=== PATIENT | male | born 1975 | race Caucasian/White ===

== ENCOUNTER 2018-08-17 13:13 | Observation (INO) ==
[2018-08-17 14:19] LABS: Bilirubin,Urine Large (Negative); Blood,Urine Negative (Negative); Clarity,Urine Cloudy (Clear); Color,Urine Orange (Yellow); Glucose,Urine (UA) Normal (Normal); Ketones,Urine Negative (Negative); Specific Gravity,Urine 1.017 (1.010-1.025)
[2018-08-17 14:20] LABS: Leukocyte Esterase,Urine Small (Negative); Nitrite,Urine Negative (Negative); Protein,Urine Negative (Neg-Trace); Urobilinogen,Urine Normal (Normal)
[2018-08-17 14:20] LABS: Basophils % 0.6 %; Eosinophils # 0.1 K/mcL (0.0-0.6); Eosinophils % 1.3 %; Hematocrit 47.7 % (37.5-50.1); Hemoglobin 15.4 g/dL (12.9-16.9); Immature Granulocytes % 1.3 % (0-4); Lymphocytes # 2.9 K/mcL (0.6-4.6); Lymphocytes % 41.1 %; Mean Corpuscular HGB Conc 32.3 g/dL (31.6-35.5); Mean Corpuscular Hemoglobin 27.9 pg (28.0-33.3); Mean Corpuscular Volume 86.6 fL (83.0-100.0); Mean Platelet Volume 11.1 fL (9.4-12.4); Monocytes # 0.7 K/mcL (0.0-1.3); Monocytes % 9.7 %; Platelet Count 204 K/mcL (140-400); Red Blood Count 5.51 M/mcL (4.19-5.50)
[2018-08-17 14:24] LABS: Neutrophils # 3.2 K/mcL (1.6-8.9)
[2018-08-17 14:28] LABS: Bacteria,Urine Few per hpf (None-Few); RBC,Urine 0-3 per hpf (0-3); WBC,Urine 0-3 per hpf (0-3)
[2018-08-17 14:30] LABS: Prothrombin Time 11.4 Seconds (9.4-12.1)
[2018-08-17 14:33] LABS: Activated Partial Thrombo Time 43.3 Seconds (26.0-36.0)
--- NOTE | 2018-08-17 14:38 | Emergency Department Note ---
Disposition Clinical Impression: Hepatitis Hepatitis A Qualifiers: Hepatic coma status: without hepatic coma Qualified Code(s): B15.9 - Hepatitis A without hepatic coma Hepatitis C Qualifiers: Viral hepatitis chronicity: chronic Hepatic coma status: without hepatic coma Qualified Code(s): B18.2 - Chronic viral hepatitis C Disposition: Admitted As Inpatient Condition: Good Time of Disposition: 18:02 General Adult HPI - General Chief complaint: ED Abdominal Pain Stated complaint: abd pain/Jaundice Time Seen by Provider: 08/17/18 13:27 Source: patient Limitations: no limitations Nursing Notes Reviewed: Yes Vital Signs Reviewed: Yes - History of Present Illness HPI Narrative: This is a 42-year-old male with past medical history significant for hepatitis C who presents after he was diagnosed with hepatitis A 2 days ago at [facility]. Patient states that symptoms initially began 10 days ago, and have progressively worsened since then. Notes that he has been feeling abdominal pain is epigastric region, described as achy and constant. Also notes sharp pain in the same region that is worsened with coughing. Pain is worse at night. He also notes that he has had decreased appetite and is now only eating one time per day. He has vomited 1-2 times every day, nonbloody, nonbilious. He also describes naa-colored stools, dark urine, yellowing of his eyes and skin, rash in his lower extremities and itchiness, extreme fatigue, lethargy, malaise. Abdominal pain is worsened with any type of movement, and it alleviated with immobilization and rest. The pain does not radiate. He says is rated approximately 6-7/10. He denies any fevers, headaches, ear pain, congestion, chest pain, palpitations, wheezing, difficulty breathing, diarrhea, burning with urination. Patient was previously incarcerated. History of IV drug abuse approximately one year ago. States he has not used since then. Denies any alcohol use. Smokes half pack per day. Pt Subjective Complaint: Abdominal pain Onset (ago): week(s) (10 days) Location: abdomen Radiation: non-radiation Pain Severity: moderate Pain Scale: 8 Quality: aching, constant Consistency: constant Improves with: immobilization, rest Worsens with: movement Associated symptoms: Reports: diaphoresis, fever/chills, loss of appetite, malaise, nausea/vomiting, rash, weakness. Denies: confusion, chest pain, cough, headaches, shortness of breath Treatments Prior to Arrival: none - Related Data Home Medications Medication Instructions Recorded Confirmed No Known Home Drugs 08/17/18 08/17/18 Allergies Allergy/AdvReac Type Severity Reaction Status Date / Time No Known Allergies Allergy Verified 08/17/18 13:16 All systems ED: reviewed and negative except as stated. Constitutional: Reports: chills, weakness, night sweats. Denies: fever Eyes: Denies: vision change ENT ED: Denies: hearing loss Cardiovascular: Denies: chest pain, palpitations Respiratory: Denies: cough, dyspnea, wheezes Gastrointestinal: Reports: abdominal pain, vomiting. Denies: nausea, diarrhea, hematemesis, melena, hematochezia Genitourinary: Denies: dysuria Musculoskeletal: Denies: back pain, neck pain Integumentary: Reports: rash Neurological: Reports: weakness. Denies: headache, numbness Psychiatric: Denies: anxiety Endocrine: Reports: fatigue Past Medical History - Past Medical History Attestation: Yes The following information was validated with the patient. Source: patient, old records reviewed Medical history: Reports: hepatitis Psychiatric history: Reports: no psych history - Social History Smoking Status: Current every day smoker Alcohol use: Reports: none Drug use: Reports: none Physical Exam - General Limitations: no limitations General appearance: alert, in no apparent distress - Head Head exam: atraumatic, normocephalic, normal inspection - Eye Eye exam: Present: PERRL, EOMI, scleral icterus - ENT ENT exam: normal exam, normal oropharynx, mucous membranes moist - Neck Neck exam: Present: normal inspection - Chest Chest inspection: Present: normal inspection, symmetric chest wall rise - Respiratory Respiratory exam: Present: normal lung sounds bilaterally - Cardiovascular Cardiovascular exam: Present: regular rate, normal rhythm, normal heart sounds, +S1, +S2 - Abdominal Exam Abdominal exam: Present: soft, tenderness (Tenderness to palpation in right upper quadrant; negative Atkinson sign), normal bowel sounds. Absent: distention, guarding, rebound, rigidity, Atkinson's sign, Rovsing's sign, tenderness at McBurney's Point Abdominal tenderness: Present: RUQ - Extremities Exam Extremities exam: Present: normal inspection, full ROM, normal capillary refill - Back Exam Back exam: Present: normal inspection, full ROM. Absent: CVA tenderness (R), CVA tenderness (L) - Neurological Exam Neurological exam: Present: alert, oriented X3, CN II-XII intact - Psychiatric Psychiatric exam: Present: normal affect, normal mood - Skin Skin exam: Present: warm, dry, intact, other (Jaundice) Course - Reevaluation(s) Reevaluation #1: Patient seen and examined at bedside. We will order routine lab work. We will also order fluids due to dehydration. We will order Zofran for abdominal discomfort. Time: 14:48 Reevaluation #2: Given patient has history of hepatitis C and is currently diagnosed with hepatitis A, patient has been vomiting daily and then unable to keep down food and drink, I spoke with Dr. Dudley of hospitalist service, and we will admit patient for GI follow-up tomorrow. Patient is currently admitted to hospitalist service. Time: 17:40 Vital Signs Temperature 97.5 F L 08/17/18 13:13 Pulse Rate 84 08/17/18 13:13 Respiratory Rate 14 08/17/18 13:13 Blood Pressure 111/71 08/17/18 13:13 O2 Sat by Pulse Oximetry 98 08/17/18 13:13 Temperature 98.2 F 08/17/18 17:50 Pulse Rate 81 08/17/18 17:50 Respiratory Rate 16 08/17/18 17:50 Blood Pressure 106/69 08/17/18 17:50 O2 Sat by Pulse Oximetry 99 08/17/18 17:50 Oxygen Delivery Oxygen Delivery Room Air Medical Decision Making - [facility] Narrative Medical decision making narrative: 42-year-old male with past medical history significant for hepatitis C, history of IV drug abuse resents with recent diagnosis of hepatitis A approximately 2 days ago. Patient states that he was diagnosed at [facility]. He has had nausea and vomiting, fatigue, naa-colored stools, dark urine over the past 10- 14 days. On exam patient has dry mucous membranes, scleral icterus, jaundice, mild abdominal pain. Lab exams reveal elevated total bilirubin = 12.7, elevated liver enzymes ALT greater than AST, positive hepatitis C and hepatitis A serology. Patient has hepatitis A, and discussed with patient because of hepatitis A usually just involve supportive care. However patient [facility] and here due to symptoms. He is unable to tolerate by mouth intake. We will have patient admitted to hospitalist service, to set him up with GI and have a follow-up with outpatient PCP here. Spoke with Dr. Dudley who agreed to accept patient to hospitalist service. Would benefit from GI follow-up for management of hepatitis A, and further management of hepatitis C. - Differential Diagnosis Hepatitis A, Hepatitis C - Lab Data Lab results reviewed: Yes I reviewed the patient's lab results. Result diagrams: 08/17/18 14:07 08/17/18 14:07 Lab Results 08/17/18 08/17/18 08/17/18 Range/Units 13:53 14:07 14:07 WBC 7.0 (4.3-11.1) K/mcL RBC 5.51 H (4.19-5.50) M/mcL Hgb 15.4 (12.9-16.9) g/dL Hct 47.7 (37.5-50.1) % MCV 86.6 (83.0-100.0) fL MCH 27.9 L (28.0-33.3) pg MCHC 32.3 (31.6-35.5) g/dL RDW 18.0 H (11.5-14.5) % Plt Count 204 (140-400) K/mcL MPV 11.1 (9.4-12.4) fL Immature Gran % 1.3 (0-4) % Seg Neutrophils % 46.0 % Lymphocytes % 41.1 % Monocytes % 9.7 % Eosinophils % 1.3 % Basophils % 0.6 % Neutrophils # 3.2 (1.6-8.9) K/mcL Lymphocytes # 2.9 (0.6-4.6) K/mcL Monocytes # 0.7 (0.0-1.3) K/mcL Eosinophils # 0.1 (0.0-0.6) K/mcL Basophils # 0.0 (0.0-0.2) K/mcL Platelet Estimate Normal (Normal) PT 11.4 (9.4-12.1) Seconds INR 1.0 APTT 43.3 H (26.0-36.0) Seconds Sodium (136-145) mEq/L Potassium (3.5-5.1) mEq/L Chloride (98-107) mEq/L Carbon Dioxide (23-29) mEq/L BUN (6-20) mg/dL Creatinine (0.70-1.30) mg/dL Est GFR ( Amer) (> 60) Est GFR (Non-Af Amer) (> 60) BUN/Creatinine Ratio (6-26) Glucose (70-105) mg/dL Calculated Osmolality (280-300) Lactic Acid (0.5-2.2) mmol/L Calcium (8.6-10.3) mg/dL Total Bilirubin (0.3-1.0) mg/dL Direct Bilirubin (0.0-0.2) mg/dL Indirect Bilirubin (0.0-1.2) mg/dL AST (13-39) Units/L ALT (7-52) Units/L Alkaline Phosphatase (34-104) Units/L Ammonia (16-53) mcmol/L Troponin I (< 0.04) ng/mL Serum Total Protein (6.4-8.9) g/dL Albumin (3.5-5.7) g/dL Globulin (2.4-3.5) g/dL Albumin/Globulin Ratio (1.1-2.2) Lipase (11-82) Units/L Urine Color [place] A (Yellow) Urine Clarity Cloudy A (Clear) Urine pH 6.0 (5.0-8.0) pH Units Ur Specific [place] 1.017 (1.010-1.025) Urine Protein Negative (Neg-Trace) mg/dL Urine Glucose (UA) Normal (Normal) mg/dL Urine Ketones Negative (Negative) mg/dL Urine Blood Negative (Negative) Urine Nitrite Negative (Negative) Urine Bilirubin Large H (Negative) Urine Urobilinogen Normal (Normal) mg/dL Ur Leukocyte Esterase Small H (Negative) Urine Microscopic RBC 0-3 (0-3) per hpf Urine Microscopic WBC 0-3 (0-3) per hpf Urine Bacteria Few (None-Few) per hpf Ur Culture Indicated? YES A (NO) Hepatitis A IgM Ab (Nonreactive) Hep Bs Antigen (Nonreactive) Hep B Core IgM Ab (Nonreactive) Hepatitis C Ab Screen (Nonreactive) Specimen Rejected 08/17/18 08/17/18 08/17/18 Range/Units 14:07 14:07 14:07 WBC (4.3-11.1) K/mcL RBC (4.19-5.50) M/mcL Hgb (12.9-16.9) g/dL Hct (37.5-50.1) % MCV (83.0-100.0) fL MCH (28.0-33.3) pg MCHC (31.6-35.5) g/dL RDW (11.5-14.5) % Plt Count (140-400) K/mcL MPV (9.4-12.4) fL Immature Gran % (0-4) % Seg Neutrophils % % Lymphocytes % % Monocytes % % Eosinophils % % Basophils % % Neutrophils # (1.6-8.9) K/mcL Lymphocytes # (0.6-4.6) K/mcL Monocytes # (0.0-1.3) K/mcL Eosinophils # (0.0-0.6) K/mcL Basophils # (0.0-0.2) K/mcL Platelet Estimate (Normal) PT (9.4-12.1) Seconds INR APTT (26.0-36.0) Seconds Sodium 133 L (136-145) mEq/L Potassium 4.3 (3.5-5.1) mEq/L Chloride 99 (98-107) mEq/L Carbon Dioxide 29 (23-29) mEq/L BUN 7 (6-20) mg/dL Creatinine 0.74 (0.70-1.30) mg/dL Est GFR ( Amer) > 60 (> 60) Est GFR (Non-Af Amer) > 60 (> 60) BUN/Creatinine Ratio 9 (6-26) Glucose 76 (70-105) mg/dL Calculated Osmolality 273 L (280-300) Lactic Acid (0.5-2.2) mmol/L Calcium 9.1 (8.6-10.3) mg/dL Total Bilirubin 12.3 H (0.3-1.0) mg/dL Direct Bilirubin 7.8 H (0.0-0.2) mg/dL Indirect Bilirubin 4.5 H (0.0-1.2) mg/dL AST 271 H (13-39) Units/L ALT 673 H (7-52) Units/L Alkaline Phosphatase 301 H (34-104) Units/L Ammonia 57 H (16-53) mcmol/L Troponin I < 0.03 (< 0.04) ng/mL Serum Total Protein 8.2 (6.4-8.9) g/dL Albumin 3.6 (3.5-5.7) g/dL Globulin 4.6 H (2.4-3.5) g/dL Albumin/Globulin Ratio 0.8 L (1.1-2.2) Lipase 53 (11-82) Units/L Urine Color (Yellow) Urine Clarity (Clear) Urine pH (5.0-8.0) pH Units Ur Specific [place] (1.010-1.025) Urine Protein (Neg-Trace) mg/dL Urine Glucose (UA) (Normal) mg/dL Urine Ketones (Negative) mg/dL Urine Blood (Negative) Urine Nitrite (Negative) Urine Bilirubin (Negative) Urine Urobilinogen (Normal) mg/dL Ur Leukocyte Esterase (Negative) Urine Microscopic RBC (0-3) per hpf Urine Microscopic WBC (0-3) per hpf Urine Bacteria (None-Few) per hpf Ur Culture Indicated? (NO) Hepatitis A IgM Ab Reactive H (Nonreactive) Hep Bs Antigen Nonreactive (Nonreactive) Hep B Core IgM Ab Equivocal H (Nonreactive) Hepatitis C Ab Screen Reactive H (Nonreactive) Specimen Rejected 08/17/18 08/17/18 Range/Units 14:07 15:59 WBC (4.3-11.1) K/mcL RBC (4.19-5.50) M/mcL Hgb (12.9-16.9) g/dL Hct (37.5-50.1) % MCV (83.0-100.0) fL MCH (28.0-33.3) pg MCHC (31.6-35.5) g/dL RDW (11.5-14.5) % Plt Count (140-400) K/mcL MPV (9.4-12.4) fL Immature Gran % (0-4) % Seg Neutrophils % % Lymphocytes % % Monocytes % % Eosinophils % % Basophils % % Neutrophils # (1.6-8.9) K/mcL Lymphocytes # (0.6-4.6) K/mcL Monocytes # (0.0-1.3) K/mcL Eosinophils # (0.0-0.6) K/mcL Basophils # (0.0-0.2) K/mcL Platelet Estimate (Normal) PT (9.4-12.1) Seconds INR APTT (26.0-36.0) Seconds Sodium (136-145) mEq/L Potassium (3.5-5.1) mEq/L Chloride (98-107) mEq/L Carbon Dioxide (23-29) mEq/L BUN (6-20) mg/dL Creatinine (0.70-1.30) mg/dL Est GFR ( Amer) (> 60) Est GFR (Non-Af Amer) (> 60) BUN/Creatinine Ratio (6-26) Glucose (70-105) mg/dL Calculated Osmolality (280-300) Lactic Acid 0.8 (0.5-2.2) mmol/L Calcium (8.6-10.3) mg/dL Total Bilirubin (0.3-1.0) mg/dL Direct Bilirubin (0.0-0.2) mg/dL Indirect Bilirubin (0.0-1.2) mg/dL AST (13-39) Units/L ALT (7-52) Units/L Alkaline Phosphatase (34-104) Units/L Ammonia (16-53) mcmol/L Troponin I (< 0.04) ng/mL Serum Total Protein (6.4-8.9) g/dL Albumin (3.5-5.7) g/dL Globulin (2.4-3.5) g/dL Albumin/Globulin Ratio (1.1-2.2) Lipase (11-82) Units/L Urine Color (Yellow) Urine Clarity (Clear) Urine pH (5.0-8.0) pH Units Ur Specific [place] (1.010-1.025) Urine Protein (Neg-Trace) mg/dL Urine Glucose (UA) (Normal) mg/dL Urine Ketones (Negative) mg/dL Urine Blood (Negative) Urine Nitrite (Negative) Urine Bilirubin (Negative) Urine Urobilinogen (Normal) mg/dL Ur Leukocyte Esterase (Negative) Urine Microscopic RBC (0-3) per hpf Urine Microscopic WBC (0-3) per hpf Urine Bacteria (None-Few) per hpf Ur Culture Indicated? (NO) Hepatitis A IgM Ab (Nonreactive) Hep Bs Antigen (Nonreactive) Hep B Core IgM Ab (Nonreactive) Hepatitis C Ab Screen (Nonreactive) Specimen Rejected Hemolyzed
[2018-08-17] MEDS ORDERED: Ondansetron 4 MG/2 ML VIAL IVP ONE (14:40)
[2018-08-17] MEDS ORDERED: Ringers Solution, Lactated 1,000 ML IVC ONE (14:40)
[2018-08-17 14:55] LABS: Platelet Estimate Normal (Normal)
[2018-08-17 15:03] LABS: Hepatitis B Surface Antigen Nonreactive (Nonreactive)
[2018-08-17 15:08] LABS: Troponin I < 0.03 ng/mL (< 0.04)
[2018-08-17 15:23] LABS: Alanine Aminotransferase 673 Units/L (7-52); Albumin 3.6 g/dL (3.5-5.7); Albumin/Globulin Ratio 0.8 (1.1-2.2); Alkaline Phosphatase 301 Units/L (34-104); Aspartate Amino Transferase 271 Units/L (13-39); BUN/Creatinine Ratio 9 (6-26); Bilirubin,Direct 7.8 mg/dL (0.0-0.2); Bilirubin,Indirect 4.5 mg/dL (0.0-1.2); Bilirubin,Total 12.3 mg/dL (0.3-1.0); Blood Urea Nitrogen 7 mg/dL (6-20); Calcium 9.1 mg/dL (8.6-10.3); Carbon Dioxide 29 mEq/L (23-29); Chloride 99 mEq/L (98-107); Globulin 4.6 g/dL (2.4-3.5); Glucose 76 mg/dL (70-105); Lipase 53 Units/L (11-82); Osmolality,Calculated 273 (280-300); Potassium 4.3 mEq/L (3.5-5.1); Sodium 133 mEq/L (136-145); Total Protein 8.2 g/dL (6.4-8.9); eGFR For Non-African Americans > 60 (> 60)
[2018-08-17] MEDS ORDERED: Ketorolac 30 MG/ML VIAL IVP ONE (15:30)
[2018-08-17 15:34] LABS: Hepatitis A Antibody IgM Reactive (Nonreactive)
[2018-08-17] MEDS ORDERED: Lactulose Oral Soln 20 GM/30 ML UDC PO STA (16:25)
[2018-08-17 16:42] LABS: Hepatitis C Virus Antibody Reactive (Nonreactive)
[2018-08-17 16:45] LABS: Hepatitis B Core IgM Equivocal (Nonreactive)
--- NOTE | 2018-08-17 16:46 | Emergency Department Note ---
Disposition Clinical Impression: Hepatitis Disposition: Admitted As Inpatient Condition: Good Referrals: NONE,PCP [Primary Care Provider] - Forms: ED Satisfaction Letter, Work/School Release General Adult HPI - General Chief complaint: ED Abdominal Pain Stated complaint: abd pain/Jaundice Time Seen by Provider: 08/17/18 13:27 Source: patient Limitations: no limitations - History of Present Illness Location: abdomen Pain Scale: 8 Quality: aching, constant Improves with: immobilization, rest Worsens with: movement Associated symptoms: Reports: diaphoresis, fever/chills, loss of appetite, malaise, nausea/vomiting, rash, weakness. Denies: confusion, chest pain, cough, headaches, shortness of breath Treatments Prior to Arrival: none - Related Data Allergies Allergy/AdvReac Type Severity Reaction Status Date / Time No Known Allergies Allergy Verified 08/17/18 13:16 Constitutional: Reports: chills, weakness, night sweats. Denies: fever Eyes: Denies: vision change ENT ED: Denies: hearing loss Cardiovascular: Denies: chest pain, palpitations Respiratory: Denies: cough, dyspnea, wheezes Gastrointestinal: Reports: abdominal pain, vomiting. Denies: nausea, diarrhea, hematemesis, melena, hematochezia Genitourinary: Denies: dysuria Musculoskeletal: Denies: back pain, neck pain Integumentary: Reports: rash Neurological: Reports: weakness. Denies: headache, numbness Psychiatric: Denies: anxiety Endocrine: Reports: fatigue Past Medical History - Past Medical History Medical history: Reports: hepatitis Psychiatric history: Reports: no psych history - Social History Smoking Status: Current every day smoker Alcohol use: Reports: none Drug use: Reports: none Physical Exam - General Limitations: no limitations General appearance: alert, in no apparent distress Course Vital Signs Temperature 97.5 F L 08/17/18 13:13 Pulse Rate 84 08/17/18 13:13 Respiratory Rate 14 08/17/18 13:13 Blood Pressure 111/71 08/17/18 13:13 O2 Sat by Pulse Oximetry 98 08/17/18 13:13 Temperature 98.3 F 08/17/18 14:11 Pulse Rate 87 08/17/18 15:24 Respiratory Rate 14 08/17/18 15:24 Blood Pressure 111/73 08/17/18 15:24 O2 Sat by Pulse Oximetry 99 08/17/18 15:24 Oxygen Delivery Oxygen Delivery Room Air Medical Decision Making - Lab Data Result diagrams: 08/17/18 14:07 08/17/18 14:07 Lab Results 08/17/18 08/17/18 08/17/18 Range/Units 13:53 14:07 14:07 WBC 7.0 (4.3-11.1) K/mcL RBC 5.51 H (4.19-5.50) M/mcL Hgb 15.4 (12.9-16.9) g/dL Hct 47.7 (37.5-50.1) % MCV 86.6 (83.0-100.0) fL MCH 27.9 L (28.0-33.3) pg MCHC 32.3 (31.6-35.5) g/dL RDW 18.0 H (11.5-14.5) % Plt Count 204 (140-400) K/mcL MPV 11.1 (9.4-12.4) fL Immature Gran % 1.3 (0-4) % Seg Neutrophils % 46.0 % Lymphocytes % 41.1 % Monocytes % 9.7 % Eosinophils % 1.3 % Basophils % 0.6 % Neutrophils # 3.2 (1.6-8.9) K/mcL Lymphocytes # 2.9 (0.6-4.6) K/mcL Monocytes # 0.7 (0.0-1.3) K/mcL Eosinophils # 0.1 (0.0-0.6) K/mcL Basophils # 0.0 (0.0-0.2) K/mcL Platelet Estimate Normal (Normal) PT 11.4 (9.4-12.1) Seconds INR 1.0 APTT 43.3 H (26.0-36.0) Seconds Sodium (136-145) mEq/L Potassium (3.5-5.1) mEq/L Chloride (98-107) mEq/L Carbon Dioxide (23-29) mEq/L BUN (6-20) mg/dL Creatinine (0.70-1.30) mg/dL Est GFR ( Amer) (> 60) Est GFR (Non-Af Amer) (> 60) BUN/Creatinine Ratio (6-26) Glucose (70-105) mg/dL Calculated Osmolality (280-300) Lactic Acid (0.5-2.2) mmol/L Calcium (8.6-10.3) mg/dL Total Bilirubin (0.3-1.0) mg/dL Direct Bilirubin (0.0-0.2) mg/dL Indirect Bilirubin (0.0-1.2) mg/dL AST (13-39) Units/L ALT (7-52) Units/L Alkaline Phosphatase (34-104) Units/L Ammonia (16-53) mcmol/L Troponin I (< 0.04) ng/mL Serum Total Protein (6.4-8.9) g/dL Albumin (3.5-5.7) g/dL Globulin (2.4-3.5) g/dL Albumin/Globulin Ratio (1.1-2.2) Lipase (11-82) Units/L Urine Color [place] A (Yellow) Urine Clarity Cloudy A (Clear) Urine pH 6.0 (5.0-8.0) pH Units Ur Specific [place] 1.017 (1.010-1.025) Urine Protein Negative (Neg-Trace) mg/dL Urine Glucose (UA) Normal (Normal) mg/dL Urine Ketones Negative (Negative) mg/dL Urine Blood Negative (Negative) Urine Nitrite Negative (Negative) Urine Bilirubin Large H (Negative) Urine Urobilinogen Normal (Normal) mg/dL Ur Leukocyte Esterase Small H (Negative) Urine Microscopic RBC 0-3 (0-3) per hpf Urine Microscopic WBC 0-3 (0-3) per hpf Urine Bacteria Few (None-Few) per hpf Ur Culture Indicated? YES A (NO) Hepatitis A IgM Ab (Nonreactive) Hep Bs Antigen (Nonreactive) Hepatitis C Ab Screen (Nonreactive) Specimen Rejected 08/17/18 08/17/18 08/17/18 Range/Units 14:07 14:07 14:07 WBC (4.3-11.1) K/mcL RBC (4.19-5.50) M/mcL Hgb (12.9-16.9) g/dL Hct (37.5-50.1) % MCV (83.0-100.0) fL MCH (28.0-33.3) pg MCHC (31.6-35.5) g/dL RDW (11.5-14.5) % Plt Count (140-400) K/mcL MPV (9.4-12.4) fL Immature Gran % (0-4) % Seg Neutrophils % % Lymphocytes % % Monocytes % % Eosinophils % % Basophils % % Neutrophils # (1.6-8.9) K/mcL Lymphocytes # (0.6-4.6) K/mcL Monocytes # (0.0-1.3) K/mcL Eosinophils # (0.0-0.6) K/mcL Basophils # (0.0-0.2) K/mcL Platelet Estimate (Normal) PT (9.4-12.1) Seconds INR APTT (26.0-36.0) Seconds Sodium 133 L (136-145) mEq/L Potassium 4.3 (3.5-5.1) mEq/L Chloride 99 (98-107) mEq/L Carbon Dioxide 29 (23-29) mEq/L BUN 7 (6-20) mg/dL Creatinine 0.74 (0.70-1.30) mg/dL Est GFR ( Amer) > 60 (> 60) Est GFR (Non-Af Amer) > 60 (> 60) BUN/Creatinine Ratio 9 (6-26) Glucose 76 (70-105) mg/dL Calculated Osmolality 273 L (280-300) Lactic Acid (0.5-2.2) mmol/L Calcium 9.1 (8.6-10.3) mg/dL Total Bilirubin 12.3 H (0.3-1.0) mg/dL Direct Bilirubin 7.8 H (0.0-0.2) mg/dL Indirect Bilirubin 4.5 H (0.0-1.2) mg/dL AST 271 H (13-39) Units/L ALT 673 H (7-52) Units/L Alkaline Phosphatase 301 H (34-104) Units/L Ammonia 57 H (16-53) mcmol/L Troponin I < 0.03 (< 0.04) ng/mL Serum Total Protein 8.2 (6.4-8.9) g/dL Albumin 3.6 (3.5-5.7) g/dL Globulin 4.6 H (2.4-3.5) g/dL Albumin/Globulin Ratio 0.8 L (1.1-2.2) Lipase 53 (11-82) Units/L Urine Color (Yellow) Urine Clarity (Clear) Urine pH (5.0-8.0) pH Units Ur Specific [place] (1.010-1.025) Urine Protein (Neg-Trace) mg/dL Urine Glucose (UA) (Normal) mg/dL Urine Ketones (Negative) mg/dL Urine Blood (Negative) Urine Nitrite (Negative) Urine Bilirubin (Negative) Urine Urobilinogen (Normal) mg/dL Ur Leukocyte Esterase (Negative) Urine Microscopic RBC (0-3) per hpf Urine Microscopic WBC (0-3) per hpf Urine Bacteria (None-Few) per hpf Ur Culture Indicated? (NO) Hepatitis A IgM Ab Reactive H (Nonreactive) Hep Bs Antigen Nonreactive (Nonreactive) Hepatitis C Ab Screen Reactive H (Nonreactive) Specimen Rejected 08/17/18 08/17/18 Range/Units 14:07 15:59 WBC (4.3-11.1) K/mcL RBC (4.19-5.50) M/mcL Hgb (12.9-16.9) g/dL Hct (37.5-50.1) % MCV (83.0-100.0) fL MCH (28.0-33.3) pg MCHC (31.6-35.5) g/dL RDW (11.5-14.5) % Plt Count (140-400) K/mcL MPV (9.4-12.4) fL Immature Gran % (0-4) % Seg Neutrophils % % Lymphocytes % % Monocytes % % Eosinophils % % Basophils % % Neutrophils # (1.6-8.9) K/mcL Lymphocytes # (0.6-4.6) K/mcL Monocytes # (0.0-1.3) K/mcL Eosinophils # (0.0-0.6) K/mcL Basophils # (0.0-0.2) K/mcL Platelet Estimate (Normal) PT (9.4-12.1) Seconds INR APTT (26.0-36.0) Seconds Sodium (136-145) mEq/L Potassium (3.5-5.1) mEq/L Chloride (98-107) mEq/L Carbon Dioxide (23-29) mEq/L BUN (6-20) mg/dL Creatinine (0.70-1.30) mg/dL Est GFR ( Amer) (> 60) Est GFR (Non-Af Amer) (> 60) BUN/Creatinine Ratio (6-26) Glucose (70-105) mg/dL Calculated Osmolality (280-300) Lactic Acid 0.8 (0.5-2.2) mmol/L Calcium (8.6-10.3) mg/dL Total Bilirubin (0.3-1.0) mg/dL Direct Bilirubin (0.0-0.2) mg/dL Indirect Bilirubin (0.0-1.2) mg/dL AST (13-39) Units/L ALT (7-52) Units/L Alkaline Phosphatase (34-104) Units/L Ammonia (16-53) mcmol/L Troponin I (< 0.04) ng/mL Serum Total Protein (6.4-8.9) g/dL Albumin (3.5-5.7) g/dL Globulin (2.4-3.5) g/dL Albumin/Globulin Ratio (1.1-2.2) Lipase (11-82) Units/L Urine Color (Yellow) Urine Clarity (Clear) Urine pH (5.0-8.0) pH Units Ur Specific [place] (1.010-1.025) Urine Protein (Neg-Trace) mg/dL Urine Glucose (UA) (Normal) mg/dL Urine Ketones (Negative) mg/dL Urine Blood (Negative) Urine Nitrite (Negative) Urine Bilirubin (Negative) Urine Urobilinogen (Normal) mg/dL Ur Leukocyte Esterase (Negative) Urine Microscopic RBC (0-3) per hpf Urine Microscopic WBC (0-3) per hpf Urine Bacteria (None-Few) per hpf Ur Culture Indicated? (NO) Hepatitis A IgM Ab (Nonreactive) Hep Bs Antigen (Nonreactive) Hepatitis C Ab Screen (Nonreactive) Specimen Rejected Hemolyzed Attestation Statement - Attestation Attestation: I examined this patient and my medical decision-making was reviewed with the Resident Physician. I agree with the documented findings, disposition and treatment plan as described except to the extent set forth below. 42 year old male presents tothe ed wit complaitnts of wosening hepatitis and has a A on chornic C and appears juadinced at bedside. PAtient tbili has been el eated now aiwth AST/ALt elevation and it appears that he is dehydrated with an eleated ammonia level. Will treat with lactulose and and admit to medicine.
[2018-08-17] MEDS ORDERED: Ondansetron ODT 4 MG TAB.RAPDIS SL PRN (17:15)
[2018-08-17] MEDS ORDERED: Naloxone 0.4 MG/ML INJ IVP PRN (17:15)
--- NOTE | 2018-08-17 17:33 | Internal Med History&Physical ---
<MarrAnanyaCailxto C - Last Filed: 08/17/18 17:27> Date of Encounter: 08/17/18 Time of Encounter: 17:28 Internal Medicine - H&P: HPI Chief complaint: nausea/vomiting Admitted From: Emergency Dept Plans for Post Hospital Care: Home History of present illness: Mr. Gómez is a 42 year old male with a past medical history of chronic hepatitis C of unknown contraction source. He was seen at [facility] last week for acute hepatitis A, and was discharged 2 days ago. He has had continued nausea, vomiting, abdominal pain, anorexia, worsening jaundice, dark urine, itching, fatigue, malaise. He denies other significant review of systems. He does not have other significant past medical or surgical history, takes no home medications. Denies significant past family history including liver or gastrointestinal cancers. Social history is significant for [id number] smoking history, previous IV drug abuse more than one year ago, opioid and marijuana use approximately 6 months ago. In the emergency department vitals are within normal limits. CBC noncontributory. CMP significant for hyponatremia, hyperbilirubinemia, elevated transaminases, elevated ammonia. Urinalysis also mildly positive for leukocyte esterase and largely positive for bilirubin. Hepatitis A IgM antibody was reactive, hepatitis B core IgM antibody was equivocal, hepatitis C antibody screen was reactive. Patient was admitted for supportive care, nausea and pain control, gastroenterology evaluation and management. Past Med Surg Social Fam HX - Past Medical History Medical history: hepatitis Additional medical history: Hep C Psychiatric history: no psych history - Social History Smoking Status: Current every day smoker Alcohol use: none Drug use: none - Family History Mother Hx Family Cancer: No Hx Family GI Disorders: No Father Hx Family Cancer: No Hx Family GI Disorders: No Internal Medicine - H&P: Meds No Known Home Drugs 08/17/18 [History] Allergy/AdvReac Type Severity Reaction Status Date / Time No Known Allergies Allergy Verified 08/17/18 13:16 All Systems PM: A 10-system review of systems was performed and is negative for pertinent findings except as documented above in the HPI. - Constitutional Constitutional: anorexia, fatigue, lethargy, malaise, no chills - EENT Eyes: no blurry vision, no change in vision Additional comments: Scleral icterus Nose, mouth and throat: no bleeding gums, no epistaxis - Cardiovascular Cardiovascular ROS IM: no chest pain, no dyspnea, no dyspnea on exertion, no edema, no irregular heart rhythm, no syncope - Respiratory Respiratory: no dyspnea, no hemoptysis - Gastrointestinal Gastrointestinal: abdominal pain, change in stool character, nausea, vomiting, no change in bowel habits, no coffee ground emesis, no constipation, no diarrhea, no dysphagia, no fecal incontinence, no hematochezia, no melena - Genitourinary Genitourinary ROS male: other (Dark urine), no difficulty urinating, no dysuria, no flank pain, no hematuria, no urinary frequency, no urinary hesitancy, no urinary incontinence, no urinary urgency - Musculoskeletal Musculoskeletal ROS IM: myalgias, no arthralgias - Integumentary Integumentary IM: pruritus, jaundice - Neurological Neurological ROS: no abnormal gait, no abnormal hearing, no behavioral changes, no focal weakness, no numbness, no paresthesias - Psychiatric Psychiatric: no behavioral changes, no confusion - Hematologic/Lymphatic Hematologic/Lymphatic: no easy bleeding, no easy bruising - Constitutional Vitals: Temp Pulse Resp BP Pulse Ox 98.3 F 86 16 95/75 98 08/17/18 14:11 08/17/18 17:18 08/17/18 17:18 08/17/18 17:18 08/17/18 17:18 Exam: Appears stated age, no acute distress Alert and oriented 3, normal affect Cranial nerves II through XII intact Extraocular movements intact, pupils equal and reactive to light, significant scleral icterus present No JVD, no edema, peripheral pulses 2+ Heart in regular rate and rhythm without murmur or gallop auscultated Lungs clear to auscultation bilaterally without specific adventitia auscultated Abdomen soft, no surgical scars present, tender to palpation in right upper quadrant, mild hepatomegaly, no splenomegaly, no ascites or fluid wave present, no caput medusa, no hernias noted Patient moves all 4 extremities, sensation and motor intact Skin warm and dry, no rash, significant jaundice, scratch perera from scratching present Internal Med - H&P Results - Labs CBC & Chem 7: 08/17/18 14:07 08/17/18 14:07 Labs: Short CBC 08/17/18 Range/Units 14:07 WBC 7.0 (4.3-11.1) K/mcL Hgb 15.4 (12.9-16.9) g/dL Hct 47.7 (37.5-50.1) % Plt Count 204 (140-400) K/mcL Neutrophils # 3.2 (1.6-8.9) K/mcL BMP 08/17/18 14:07 Sodium 133 L Potassium 4.3 Chloride 99 Carbon Dioxide 29 BUN 7 Creatinine 0.74 Glucose 76 Calcium 9.1 Cardiac Enzymes 08/17/18 Range/Units 14:07 Troponin I < 0.03 (< 0.04) ng/mL Liver Function 08/17/18 Range/Units 14:07 Total Bilirubin 12.3 H (0.3-1.0) mg/dL Direct Bilirubin 7.8 H (0.0-0.2) mg/dL AST 271 H (13-39) Units/L ALT 673 H (7-52) Units/L Alkaline Phosphatase 301 H (34-104) Units/L Albumin 3.6 (3.5-5.7) g/dL Urine 08/17/18 Range/Units 13:53 Urine Color [place] A (Yellow) Urine Clarity Cloudy A (Clear) Urine pH 6.0 (5.0-8.0) pH Units Ur Specific [place] 1.017 (1.010-1.025) Urine Protein Negative (Neg-Trace) mg/dL Urine Glucose (UA) Normal (Normal) mg/dL - Assessment and Plan (1) Hepatitis A Current Visit: Yes Status: Acute Assessment and plan: Patient presented with nausea, vomiting, anorexia secondary to acute hepatitis A infection on chronic hepatitis C infection He does not know how he contracted hepatitis A or hepatitis C, however he does have remote history of IV drug abuse and incarceration Patient was also found to have hyperammonemia, hyperbilirubinemia, transaminitis, jaundice and scleral icterus Platelet count and INR are within normal limits, sodium is noted to be slightly decreased at 133 on admission There are no signs of significant hepatomegaly, ascites, spider angiomas or caput medusa on exam He has not previously been treated for hepatitis C US liver was performed at [facility] last week, will request those records Repeat CBC, CMP, ammonia, coagulation studies in a.m. Subcutaneous heparin for DVT prophylaxis 10 g by mouth lactulose twice a day for 3 bowel movements per day Supportive therapy with normal saline MIVF, when necessary Zofran, when necessary pain control Urinalysis showed mild leukocyte esterase however there is no clinical correlation, will monitor Gastroenterology consultation for recommendations on inpatient testing and management and outpatient management Qualifiers: Hepatic coma status: without hepatic coma Qualified Code(s): B15.9 - Hepatitis A without hepatic coma (2) Hepatitis C Current Visit: Yes Status: Acute Qualifiers: Viral hepatitis chronicity: chronic Hepatic coma status: without hepatic coma Qualified Code(s): B18.2 - Chronic viral hepatitis C (3) Transaminitis Current Visit: Yes Status: Acute (4) Hyperbilirubinemia Current Visit: Yes Status: Acute (5) Tobacco abuse Current Visit: No Status: Chronic Assessment and plan: Patient admits to [id number] smoking history Counseled and we will continue to business and financial counsel on cessation - Time Spent With Patient Total time spent is greater than 50% in coordination of care (as documented) at patient's floor/unit and/or counseling patient: <Luna Dudley - Last Filed: 08/17/18 20:24> Date of Encounter: 08/17/18 Internal Medicine - H&P: HPI History of present illness: Mr. Gómez is a 42 year old male All Systems PM: A 10-system review of systems was performed and is negative for pertinent findings except as documented above in the HPI. - Constitutional Vitals: Temp Pulse Resp BP Pulse Ox 98.2 F 81 16 106/69 99 08/17/18 17:50 08/17/18 17:50 08/17/18 17:50 08/17/18 17:50 08/17/18 17:50 Internal Med - H&P Results - Labs CBC & Chem 7: 08/17/18 14:07 08/17/18 14:07 Labs: Short CBC 08/17/18 Range/Units 14:07 WBC 7.0 (4.3-11.1) K/mcL Hgb 15.4 (12.9-16.9) g/dL Hct 47.7 (37.5-50.1) % Plt Count 204 (140-400) K/mcL Neutrophils # 3.2 (1.6-8.9) K/mcL BMP 08/17/18 14:07 Sodium 133 L Potassium 4.3 Chloride 99 Carbon Dioxide 29 BUN 7 Creatinine 0.74 Glucose 76 Calcium 9.1 Cardiac Enzymes 08/17/18 Range/Units 14:07 Troponin I < 0.03 (< 0.04) ng/mL Liver Function 08/17/18 Range/Units 14:07 Total Bilirubin 12.3 H (0.3-1.0) mg/dL Direct Bilirubin 7.8 H (0.0-0.2) mg/dL AST 271 H (13-39) Units/L ALT 673 H (7-52) Units/L Alkaline Phosphatase 301 H (34-104) Units/L Albumin 3.6 (3.5-5.7) g/dL Urine 08/17/18 Range/Units 13:53 Urine Color [place] A (Yellow) Urine Clarity Cloudy A (Clear) Urine pH 6.0 (5.0-8.0) pH Units Ur Specific [place] 1.017 (1.010-1.025) Urine Protein Negative (Neg-Trace) mg/dL Urine Glucose (UA) Normal (Normal) mg/dL - Assessment and Plan (1) Hepatitis C Current Visit: Yes Status: Acute Qualifiers: Viral hepatitis chronicity: chronic Hepatic coma status: without hepatic coma Qualified Code(s): B18.2 - Chronic viral hepatitis C (2) Hepatitis A Current Visit: Yes Status: Acute Qualifiers: Hepatic coma status: without hepatic coma Qualified Code(s): B15.9 - Hepatitis A without hepatic coma (3) Transaminitis Current Visit: Yes Status: Acute (4) Hyperbilirubinemia Current Visit: Yes Status: Acute (5) Tobacco abuse Current Visit: No Status: Chronic - Time Spent With Patient Total time spent is greater than 50% in coordination of care (as documented) at patient's floor/unit and/or counseling patient: - Attending Attestation I examined this patient and my medical decision-making was reviewed with the Resident Physician. I agree with the documented findings, disposition and treatment plan as described except to the extent set forth below.
[2018-08-17] MEDS: 0.9 % Sodium Chloride 1,000 ML IVC SCH (18:20)
[2018-08-17] MEDS: *HR* Heparin 5,000 UNIT/ML VIAL SQ SCH (18:26)
[2018-08-17] MEDS: Ibuprofen 400 MG TABLET PO PRN (18:26)
[2018-08-17] MEDS: Lactulose Oral Soln 20 GM/30 ML UDC PO SCH (21:29)
[2018-08-18] MEDS: 0.9 % Sodium Chloride 1,000 ML IVC SCH (02:24)
[2018-08-18] MEDS: Ibuprofen 400 MG TABLET PO PRN (03:50)
[2018-08-18] MEDS: *HR* Heparin 5,000 UNIT/ML VIAL SQ SCH (05:07)
[2018-08-18 06:28] LABS: Basophils % 0.5 %; Eosinophils # 0.1 K/mcL (0.0-0.6); Eosinophils % 2.6 %; Hematocrit 39.3 % (37.5-50.1); Immature Granulocytes % 1.2 % (0-4); Lymphocytes # 1.8 K/mcL (0.6-4.6); Mean Corpuscular HGB Conc 31.6 g/dL (31.6-35.5); Mean Corpuscular Hemoglobin 27.4 pg (28.0-33.3); Mean Corpuscular Volume 86.8 fL (83.0-100.0); Monocytes # 0.5 K/mcL (0.0-1.3); Monocytes % 10.6 %; Neutrophils # 1.8 K/mcL (1.6-8.9); Platelet Count 154 K/mcL (140-400); Red Blood Count 4.53 M/mcL (4.19-5.50); Red Cell Distribution Width 17.5 % (11.5-14.5); Segmented Neutrophils % 43.1 %
[2018-08-18 06:38] LABS: INR 1.1
[2018-08-18 06:40] LABS: Hemoglobin 12.4 g/dL (12.9-16.9)
[2018-08-18 06:41] LABS: Activated Partial Thrombo Time 40.6 Seconds (26.0-36.0)
[2018-08-18 06:53] LABS: Alanine Aminotransferase 407 Units/L (7-52); Albumin 2.7 g/dL (3.5-5.7); Albumin/Globulin Ratio 0.8 (1.1-2.2); Alkaline Phosphatase 226 Units/L (34-104); Aspartate Amino Transferase 158 Units/L (13-39); BUN/Creatinine Ratio 10 (6-26); Bilirubin,Total 9.4 mg/dL (0.3-1.0); Blood Urea Nitrogen 6 mg/dL (6-20); Calcium 8.2 mg/dL (8.6-10.3); Carbon Dioxide 25 mEq/L (23-29); Chloride 105 mEq/L (98-107); Globulin 3.4 g/dL (2.4-3.5); Glucose 107 mg/dL (70-105); Osmolality,Calculated 278 (280-300); Sodium 135 mEq/L (136-145); Total Protein 6.1 g/dL (6.4-8.9); eGFR For Non-African Americans > 60 (> 60)
[2018-08-18 07:12] LABS: Platelet Estimate Normal (Normal); Reactive Lymphocytes Present (Not Present)
--- NOTE | 2018-08-18 08:14 | Internal Med Progress Note ---
Hospitalist Progress Note - Encounter Date of Encounter: 08/18/18 Time of Encounter: 08:14 - Subjective Interval History: No acute events overnight. He complains of continued itching, but nausea and vomiting have resolved and he is tolerating PO intake. He does complain of continued RUQ pain. - Exam Vitals: Temp Pulse Resp BP Pulse Ox 97.6 F 63 16 98/60 99 08/18/18 07:43 08/18/18 07:43 08/18/18 07:43 08/18/18 07:43 08/18/18 07:43 Exam: Appears stated age, no acute distress Alert and oriented 3, normal affect Cranial nerves II through XII intact Extraocular movements intact, pupils equal and reactive to light, significant scleral icterus present No JVD, no edema, peripheral pulses 2+ Heart in regular rate and rhythm without murmur or gallop auscultated Lungs clear to auscultation bilaterally without specific adventitia auscultated Abdomen soft, no surgical scars present, tender to palpation in right upper quadrant, mild hepatomegaly, no splenomegaly, no ascites or fluid wave present, no caput medusa, no hernias noted Patient moves all 4 extremities, sensation and motor intact Skin warm and dry, no rash, significant jaundice, scratch perera from scratching present - Assessment and Plan (1) Hepatitis A Current Visit: Yes Status: Acute Assessment and Plan: Patient presented with nausea, vomiting, anorexia secondary to acute hepatitis A infection on chronic hepatitis C infection He does not know how he contracted hepatitis A or hepatitis C, however he does have remote history of IV drug abuse and incarceration Patient was also found to have hyperammonemia, hyperbilirubinemia, transaminitis, jaundice and scleral icterus Platelet count and INR are within normal limits, sodium is noted to be slightly decreased at 133 on admission There are no signs of significant hepatomegaly, ascites, spider angiomas or caput medusa on exam He has not previously been treated for hepatitis C US liver was performed at [facility] last week, records requested Repeat CBC, CMP, ammonia, coagulation studies show improvement Patient tolerating oral intake Subcutaneous heparin for DVT prophylaxis 10 g by mouth lactulose twice a day for 3 bowel movements per day when necessary Zofran, when necessary pain control Gastroenterology consultation for recommendations on inpatient testing and management and outpatient management (2) Hepatitis C Current Visit: Yes Status: Chronic (3) Transaminitis Current Visit: Yes Status: Acute (4) Hyperbilirubinemia Current Visit: Yes Status: Acute (5) Tobacco abuse Current Visit: No Status: Chronic Assessment and Plan: Patient admits to [id number] smoking history Counseled and we will continue to elementary school counselor on cessation DVT Prophylaxis: Subcutaneous heparin - Time Spent with Patient Total time spent is greater than 50% in coordination of care (as documented) at patient's floor/unit and/or counseling patient: Internal Medicine: Result - Labs CBC & Chem 7: 08/18/18 06:08 08/18/18 06:08 Labs: Short CBC 08/17/18 08/18/18 Range/Units 14:07 06:08 WBC 7.0 4.2 L (4.3-11.1) K/mcL Hgb 15.4 12.4 L D (12.9-16.9) g/dL Hct 47.7 39.3 (37.5-50.1) % Plt Count 204 154 (140-400) K/mcL Neutrophils # 3.2 1.8 (1.6-8.9) K/mcL BMP 08/17/18 08/18/18 14:07 06:08 Sodium 133 L 135 L Potassium 4.3 4.0 Chloride 99 105 Carbon Dioxide 29 25 BUN 7 6 Creatinine 0.74 0.60 L Glucose 76 107 H Calcium 9.1 8.2 L Cardiac Enzymes 08/17/18 Range/Units 14:07 Troponin I < 0.03 (< 0.04) ng/mL Liver Function 08/17/18 08/18/18 Range/Units 14:07 06:08 Total Bilirubin 12.3 H 9.4 H (0.3-1.0) mg/dL Direct Bilirubin 7.8 H (0.0-0.2) mg/dL AST 271 H 158 H (13-39) Units/L ALT 673 H 407 H (7-52) Units/L Alkaline Phosphatase 301 H 226 H (34-104) Units/L Albumin 3.6 2.7 L (3.5-5.7) g/dL Urine 08/17/18 Range/Units 13:53 Urine Color [place] A (Yellow) Urine Clarity Cloudy A (Clear) Urine pH 6.0 (5.0-8.0) pH Units Ur Specific [place] 1.017 (1.010-1.025) Urine Protein Negative (Neg-Trace) mg/dL Urine Glucose (UA) Normal (Normal) mg/dL - ABG Interpretation ABG results: PT/INR, D-dimer PT 12.0 Seconds (9.4-12.1) 08/18/18 06:08 Consult Discharge Plan - Plan Referrals: NONE,PCP [Primary Care Provider] - (1) Hepatitis A Qualifiers: Hepatic coma status: without hepatic coma Qualified Code(s): B15.9 - Hepatitis A without hepatic coma (2) Hepatitis C Qualifiers: Viral hepatitis chronicity: chronic Hepatic coma status: without hepatic coma Qualified Code(s): B18.2 - Chronic viral hepatitis C
[2018-08-18] MEDS: Lactulose Oral Soln 20 GM/30 ML UDC PO SCH (09:11)
--- NOTE | 2018-08-18 09:57 | Gastroenterology Consult Note ---
<ElizabethRonit - Last Filed: 08/18/18 09:46> Date of Encounter: 08/18/18 Time of Encounter: 09:30 - Assessment and plan (1) Hepatitis A Status: Acute Assessment and plan: Continue symptomatic treatment, IV fluids and antiemetics. LFTs are trending down. Advised pt that symptoms may linger, but infection will clear without intervention and lab values should continue to decrease. He is advised contact precautions to prevent spread to household members. Qualifiers: Hepatic coma status: without hepatic coma Qualified Code(s): B15.9 - Hepatitis A without hepatic coma (2) Hepatitis B Status: Acute Assessment and plan: Screening was equivocal, further testing ordered to ascertain if he has an active infection. If he is chronically infected will need treatment. Qualifiers: Viral hepatitis chronicity: unspecified (3) IVDU (intravenous drug user) Status: Acute Assessment and plan: Pt verbalizes desire to stop using drugs. He is advised to seek treatment and he states he has been calling around. (4) Hepatitis C Status: Acute Assessment and plan: Quant is ordered to see if pt has an active infection. He is advised he will need to remain drug and alcohol free for 6 months before treatment for Hep C can be initiated. Qualifiers: Viral hepatitis chronicity: chronic Hepatic coma status: without hepatic coma Qualified Code(s): B18.2 - Chronic viral hepatitis C (5) Hyperbilirubinemia Status: Acute - Time Spent With Patient Total time spent is greater than 50% in coordination of care (as documented) at patient's floor/unit and/or counseling patient: GI History of Present Illness - Data of Consult Patient: new to practice Consult date: 08/18/18 Requesting Physician: Luna Dudley MD - Consult Narrative Reason for consult: Acute hepatitis History of present illness: Mr. Gómez is a 42 year old male with a past medical history of chronic hepatitis C and IV drug use. He states he has not used in 10-14 days. He was seen at [facility] last week for acute hepatitis A, and was discharged 2 days ago. He presented to ER with continued nausea, vomiting, abdominal pain, anorexia, worsening jaundice, dark urine, itching, fatigue, malaise. He reports noticing jaundice approximately 9 days ago. He does not have other significant past medical or surgical history, takes no home medications. Denies significant past family history of liver disease, orgastrointestinal cancers. Social history is significant for [id number] smoking history, IV drug abuse, opioid and marijuana use. He denies any alcohol. In the emergency department vitals are within normal limits. Labs revealed a normal CBC, sodium 135, total bili was 12.3 has decreased to 9.4. AST currently 158 ALT 407, alk phosphatase 226, ammonia 82. Normal PT and INR, Hepatitis A IgM antibody was reactive, hepatitis B core IgM antibody was equivocal, hepatitis C antibody screen was reactive. Past Med Surg Social Fam HX - Past Medical History Medical history: hepatitis Additional medical history: Hep C Psychiatric history: no psych history - Social History Smoking Status: Current every day smoker Smokeless Tobacco Status: No Alcohol use: none Drug use: none - Family History Mother Hx Family Cancer: No Hx Family GI Disorders: No Father Hx Family Cancer: No Hx Family GI Disorders: No Review of Systems: GI: as per LUMMI GENERAL: denies fever, or chills EYES: yellow discoloration ENT: denies pain with swallowing or difficulty swallowing CARDIO: denies chest pain, palpitations RESP: No Shortness of breath with exertion : dark urine NEURO: weakness HEME: Denies any bruising MS: denies joint pain, joint swelling or back pain. DERM: denies rash or itching PSYCH: history of anxiety and depression - Constitutional Vitals: Temp Pulse Resp BP Pulse Ox 97.6 F 63 16 98/60 99 08/18/18 07:43 08/18/18 07:43 08/18/18 07:43 08/18/18 07:43 08/18/18 07:43 Exam: CONSTITUTIONAL:alert, no acute distress.HEAD:normocephalic.EYES: jaundice.NECK:no obvious swelling.HEART:regular rate and rhythm, no murmurs.LUNGS:bilateral good air entry.ABDOMEN:softly distended, tender to epigastric area, no masses palpable, no organomegaly.RECTAL EXAM:Deferred.EXTREMITIES:no clubbing, cyanosis or edema.SKIN:jaundice noted.NEUROLOGIC:no obvious focal defect. Results - Labs CBC & Chem 7: 08/18/18 06:08 08/18/18 06:08 Labs: Last Result Calcium 8.2 mg/dL (8.6-10.3) L 08/18/18 06:08 Troponin I < 0.03 ng/mL (< 0.04) 08/17/18 14:07 Entire Visit Hgb 12.4 g/dL (12.9-16.9) L D 08/18/18 06:08 Hct 39.3 % (37.5-50.1) 08/18/18 06:08 PT 12.0 Seconds (9.4-12.1) 08/18/18 06:08 Total Bilirubin 9.4 mg/dL (0.3-1.0) H 08/18/18 06:08 AST 158 Units/L (13-39) H 08/18/18 06:08 ALT 407 Units/L (7-52) H 08/18/18 06:08 Ammonia 82 mcmol/L (16-53) H 08/18/18 06:08 Lipase 53 Units/L (11-82) 08/17/18 14:07 - ABG ABG results: PT/INR, D-dimer PT 12.0 Seconds (9.4-12.1) 08/18/18 06:08 Consult Discharge Plan - Plan Referrals: Ronit Johnson [Advanced Practice Nurse] - (web requested 08/18/2018) NONE,PCP [Primary Care Provider] - Prescriptions: Ondansetron ODT [Zofran ODT] 4 mg SL Q6HR PRN 7 Days #28 tab.rapdis PRN Reason: Nausea And Vomiting <Gilda Ontiveros - Last Filed: 08/18/18 18:18> Date of Encounter: 08/18/18 Time of Encounter: 17:50 - Time Spent With Patient Total time spent is greater than 50% in coordination of care (as documented) at patient's floor/unit and/or counseling patient: GI History of Present Illness - Data of Consult Requesting Physician: Luna Dudley MD - Consult Narrative History of present illness: Mr. Gómez is a 42 year old male - Constitutional Vitals: Temp Pulse Resp BP Pulse Ox 97.9 F 76 16 115/74 98 08/18/18 15:33 08/18/18 15:33 08/18/18 15:33 08/18/18 15:33 08/18/18 15:33 Results - Labs CBC & Chem 7: 08/18/18 06:08 08/18/18 06:08 Labs: Last Result Calcium 8.2 mg/dL (8.6-10.3) L 08/18/18 06:08 Troponin I < 0.03 ng/mL (< 0.04) 08/17/18 14:07 Entire Visit Hgb 12.4 g/dL (12.9-16.9) L D 08/18/18 06:08 Hct 39.3 % (37.5-50.1) 08/18/18 06:08 PT 12.0 Seconds (9.4-12.1) 08/18/18 06:08 Total Bilirubin 9.4 mg/dL (0.3-1.0) H 08/18/18 06:08 AST 158 Units/L (13-39) H 08/18/18 06:08 ALT 407 Units/L (7-52) H 08/18/18 06:08 Ammonia 82 mcmol/L (16-53) H 08/18/18 06:08 Lipase 53 Units/L (11-82) 08/17/18 14:07 - ABG ABG results: PT/INR, D-dimer PT 12.0 Seconds (9.4-12.1) 08/18/18 06:08 - Attending Attestation I have personally performed a face to face evaluation on this patient. I have reviewed and agree with the care plan. History and Exam by me shows: Patient seen no active issues. Exam: Abdomen is benign assessment. Patient is jaundiced. Assessment: Patient with history of IV drug abuse with a history of hep C now with acute hepatitis C with elevated LFTs, LFTs are doing better. His INR is only 1.1. Recommendation: Symptomatic treatment, periodic LFTs as an outpatient follow-up with GI as an outpatient
[2018-08-18 15:14] LABS: Hepatitis B Surface Antibody 17.86 mIU/mL
[2018-08-18 15:31] LABS: Hepatitis B Surface Antigen Nonreactive (Nonreactive)
[2018-08-18 15:34] VITALS: BP 115/74
[2018-08-18 16:57] LABS: Hepatitis B Core IgM Equivocal (Nonreactive)
--- NOTE | 2018-08-18 17:29 | Discharge Summary ---
<Calixto Marr Hong - Last Filed: 08/18/18 17:25> - NOTES TO OUTPATIENT PROVIDER Notes to Outpatient Provider: Patient was admitted and treated for acute hepatitis A on chronic hepatitis C infection. He was treated with supportive care including IV fluids, nausea control, pain control. He was evaluated by [facility] who recommended outpatient follow-up. He was discharged in stable condition, being able to tolerate by mouth intake. Orders not resulted at time of discharge: Pending orders 08/17/18 13:53 Culture,Urine [RM] Stat 08/18/18 10:49 Hepatitis B Core Ab Total Routine Hepatitis B Virus Quant PCR Routine Hepatitis C Qnt Reflx Genotype Routine 08/19/18 04:00 CMP [Comprehensive Metabolic Panel] AM 0400 Complete Blood Count [HEME] AM 0400 Date of Encounter: 08/18/18 Time of Encounter: 17:25 - Discharge Diagnosis (1) Hepatitis A Priority: Primary Status: Acute Assessment and Plan: Patient presented with nausea, vomiting, anorexia secondary to acute hepatitis A infection on chronic hepatitis C infection He does not know how he contracted hepatitis A or hepatitis C, however he does have remote history of IV drug abuse and incarceration Patient was also found to have hyperammonemia, hyperbilirubinemia, transaminitis, jaundice and scleral icterus Platelet count and INR are within normal limits, sodium is noted to be slightly decreased at 133 on admission There are no signs of significant hepatomegaly, ascites, spider angiomas or caput medusa on exam He has not previously been treated for hepatitis C US liver was performed at [facility] last week, records requested Repeat CBC, CMP, ammonia, coagulation studies show improvement Patient tolerating oral intake Discharge with GI follow-up Qualifiers: Hepatic coma status: without hepatic coma Qualified Code(s): B15.9 - Hepatitis A without hepatic coma (2) Hepatitis C Priority: Primary Status: Chronic Qualifiers: Viral hepatitis chronicity: chronic Hepatic coma status: without hepatic coma Qualified Code(s): B18.2 - Chronic viral hepatitis C (3) Transaminitis Priority: Secondary Status: Acute (4) Hyperbilirubinemia Priority: Secondary Status: Acute (5) Tobacco abuse Priority: Secondary Status: Chronic Assessment and Plan: Patient admits to [id number] smoking history Counseled and we will continue to primary counselor on cessation Hospital course: Mr. Gómez is a 42 year old male who was admitted for acute hepatitis A on chronic hepatitis C infection. He was treated with supportive care including nausea and pain control. Gastroenterology evaluated and recommended outpatient follow-up. He was discharged in stable condition after being able to tolerate by mouth intake. Discharge discussed with: patient - Time Spent with Patient Total time spent providing and/or coordinating discharge services: - Discharge Medications Prescriptions: New Ondansetron ODT [Zofran ODT] 4 mg SL Q6HR PRN 7 Days #28 tab.rapdis PRN Reason: Nausea And Vomiting Home Medications: Ondansetron ODT [Zofran ODT] 4 mg SL Q6HR PRN 7 Days #28 tab.rapdis 08/18/18 [Rx] Allergies/Adverse Reactions: Allergy/AdvReac Type Severity Reaction Status Date / Time No Known Allergies Allergy Verified 08/17/18 13:16 Date of admission: 08/17/18 17:00 Primary care physician: PCP NONE Consults: 08/17/18 17:26 Consult to Gastroenterology [CONS] Routine Consulting Provider: [facility] Reason for Consult: Patient with history of untreated Hepatitis C presents with Acute Hepatitis A. Request evaluation for further testing/inpatient work-up and outpatient management. Call Completed: No Discharging clinician: Calixto Marr Anticipated date of discharge: 08/18/18 - Constitutional Vitals: Temp Pulse Resp BP Pulse Ox 97.9 F 76 16 115/74 98 08/18/18 15:33 08/18/18 15:33 08/18/18 15:33 08/18/18 15:33 08/18/18 15:33 Exam: Appears stated age, no acute distress Alert and oriented 3, normal affect Cranial nerves II through XII intact Extraocular movements intact, pupils equal and reactive to light, significant scleral icterus present No JVD, no edema, peripheral pulses 2+ Heart in regular rate and rhythm without murmur or gallop auscultated Lungs clear to auscultation bilaterally without specific adventitia auscultated Abdomen soft, no surgical scars present, tender to palpation in right upper quadrant, mild hepatomegaly, no splenomegaly, no ascites or fluid wave present, no caput medusa, no hernias noted Patient moves all 4 extremities, sensation and motor intact Skin warm and dry, no rash, significant jaundice, scratch perera from scratching present - Patient Status Disposition: Home, Self-Care Condition: Good Functional capacity at discharge: independent ambulation Overall status at discharge: patient is progressing back to baseline - Discharge Instructions Follow Up With: Ronit Johnson [Advanced Practice Nurse] - (web requested 08/18/2018) NONE,PCP [Primary Care Provider] - - Diet and Activity Activity: resume usual activities as tolerated Diet: advance to your usual diet <Luna Dudley - Last Filed: 08/18/18 20:09> Orders not resulted at time of discharge: Pending orders 08/17/18 13:53 Culture,Urine [RM] Stat 08/18/18 10:49 Hepatitis B Core Ab Total Routine Hepatitis B Virus Quant PCR Routine Hepatitis C Qnt Reflx Genotype Routine Date of Encounter: 08/18/18 - Discharge Diagnosis (1) Hepatitis C Status: Chronic Qualifiers: Viral hepatitis chronicity: chronic Hepatic coma status: without hepatic coma Qualified Code(s): B18.2 - Chronic viral hepatitis C (2) Hepatitis A Status: Acute Qualifiers: Hepatic coma status: without hepatic coma Qualified Code(s): B15.9 - Hepatitis A without hepatic coma (3) Transaminitis Status: Acute (4) Hyperbilirubinemia Status: Acute (5) Tobacco abuse Status: Chronic Hospital course: Mr. Gómez is a 42 year old male - Time Spent with Patient Total time spent providing and/or coordinating discharge services: Date of admission: 08/17/18 17:00 Primary care physician: PCP MARLENI Consults: 08/17/18 17:26 Consult to Gastroenterology [CONS] Routine Consulting Provider: [facility] Reason for Consult: Patient with history of untreated Hepatitis C presents with Acute Hepatitis A. Request evaluation for further testing/inpatient work-up and outpatient management. Call Completed: No - Constitutional Vitals: Temp Pulse Resp BP Pulse Ox 97.9 F 76 16 115/74 98 08/18/18 15:33 08/18/18 15:33 08/18/18 15:33 08/18/18 15:33 08/18/18 15:33 - Attending Attestation I examined this patient and my medical decision-making was reviewed with the Resident Physician. I agree with the documented findings, disposition and treatment plan as described except to the extent set forth below.
[2018-08-20 15:15] LABS: HCV Quant Interpretation NOT DETECTED (Not Detected); HCV Quant Log NOT DETECTED log IU/mL
--- NOTE | 2018-08-21 09:47 | Electrocardiograph Report ---
[address] [id number] Test Date: 2018-08-17 Pat Name: Mathieu Gómez Department: EXAM5 Room: 2A26 Gender: M User Interface Artist: : 1975 Requested By: Linda Mills Order Number: [id number] Reading MD: Christofer Valencia Measurements Intervals [place] Rate: 86 P: 79 MS: 136 QRS: 79 QRSD: 82 T: 59 QT: 343 QTc: 411 Interpretive Statements Sinus rhythm Electronically Signed On 08-21-2018 9:46:23 EDT by Christofer Valencia
[2018-08-21 12:03] LABS: HBV Quant Log by PCR <1.00 log IU/mL; HBV Quant by PCR <10 DETECTED IU/mL
[2018-08-21 12:56] LABS: HBV Quant Interpretation DETECTED (Not Detected)
== END 2018-08-18 18:08 | disposition home or self-care (01) ==
LOC: 2ANU 13:13 → EMEROOARM 13:13 → 2ANU 17:24
PROVIDERS: ADMIT Student in an Organized Health Care Education/Training Program; ATTEND Student in an Organized Health Care Education/Training Program